=== PATIENT | male | born 1940 | race Caucasian/White ===

== ENCOUNTER 2021-06-10 16:15 | Inpatient (IN) | payer OTHER ==
[2021-06-10 18:19] LABS: #Monocytes 0.9 10x3/uL (0.0-1.1); #Neutrophils 4.4 10x3/uL (1.5-8.4); %Basophils 0.6 % (0.0-2.0); %Eosinophils 0.6 % (0.0-6.0); %Lymphocytes 15.3 % (18.0-47.0); %Monocytes 13.6 % (0.0-10.0); %Neutrophils 69.6 % (40.0-75.0); Hemoglobin 12.6 g/dL (13.5-17.5); Mean Corpuscular HGB CONC 34.5 g/dL (32.0-36.0); Mean Corpuscular Hemoglobin 30.2 pg (27.0-33.0); Mean Corpuscular Volume 87.5 fl (81.2-95.1); Mean Platelet Volume 8.8 fl (7.4-10.4); Platelet Count 234 10x3/uL (150-450); RBC Distribution Width 13.8 % (11.5-14.5); Red Blood Cell (RBC) Count 4.17 10x6/uL (4.32-5.72); White Blood Cell (WBC) Count 6.3 10x3/uL (3.5-10.5)
[2021-06-10 18:33] LABS: ALT (SGPT) 14 U/L (8-55); AST (SGOT) 19 U/L (5-34); Alkaline Phosphatase 97 U/L (40-110); Anion Gap 14 mmol/L (10-20); BUN (Urea Nitrogen) 11 mg/dL (8.4-25.7); Bilirubin, Total 0.8 mg/dL (0.2-1.2); Calc. Creatinine Clearance 0 mL/min (70-130); Carbon Dioxide 19 mmol/L (23-31); Chloride 102 mmol/L (98-107); Glucose 107 mg/dL (83-110); Potassium 3.7 mmol/L (3.5-5.1); Sodium 131 mmol/L (136-145)
[2021-06-10] MEDS ORDERED: metroNIDAZOLE 500 MG/100 ML BAG ONE (19:37)
[2021-06-10] MEDS ORDERED: PROPOFOL 20 ML ONE (19:37)
[2021-06-10] MEDS ORDERED: Fentanyl 250 MCG/5 ML VIAL ONE (19:37)
[2021-06-10] MEDS ORDERED: Dexamethasone 4 mg/ml Vial ONE (19:38)
[2021-06-10] MEDS ORDERED: Rocuronium Bromide 10 MG/ML (10ML VIAL) ONE (19:38)
[2021-06-10] MEDS ORDERED: Lidocaine 1% PF 5 ML VIAL ONE (19:38)
[2021-06-10] MEDS ORDERED: Piperacillin/Tazobactam 4.5 GM VIAL ONE (20:21)
[2021-06-10] MEDS ORDERED: SUGAMMADEX SODIUM 200 MG/2 ML VIAL ONE (20:30)
[2021-06-10] MEDS ORDERED: Succinylcholine 200 MG/10 ml SYRINGE FS ONE (20:34)
[2021-06-10] MEDS ORDERED: PHENYLEPHRINE-NS 100 MCG/ML 10 ML SYRINGE ONE (21:00)
[2021-06-10] MEDS ORDERED: Ondansetron PF 4 MG/2 ML Vial ONE (21:08)
[2021-06-10] MEDS ORDERED: Morphine 4 MG/ML VIAL SLOW IVP PRN (22:02)
[2021-06-10] MEDS ORDERED: Promethazine HCl 25 MG/ML VIAL IM PRN (22:02)
[2021-06-10] MEDS ORDERED: Ondansetron PF 4 MG/2 ML Vial IVP PRN (22:02)
[2021-06-10] MEDS ORDERED: hydrALAZINE 20 MG/ML VIAL SLOW IVP PRN (22:02)
[2021-06-10] MEDS ORDERED: Fentanyl 100 MCG/2 ML VIAL ONE (22:20)
[2021-06-11] MEDS: D5 1/2 NS w/20 mEq KCL 1,000 ML IV SCH ×2 (00:34→16:24)
[2021-06-11] MEDS: Ketorolac Tromethamine 30 MG/ML VIAL IVP SCH ×4 (00:35→19:00)
[2021-06-11 04:49] LABS: Hemoglobin 12.7 g/dL (13.5-17.5); Mean Corpuscular HGB CONC 35.4 g/dL (32.0-36.0); Mean Corpuscular Hemoglobin 30.9 pg (27.0-33.0); Mean Corpuscular Volume 87.3 fl (81.2-95.1); Mean Platelet Volume 9.1 fl (7.4-10.4); Platelet Count 203 10x3/uL (150-450); RBC Distribution Width 13.6 % (11.5-14.5); Red Blood Cell (RBC) Count 4.11 10x6/uL (4.32-5.72); White Blood Cell (WBC) Count 9.4 10x3/uL (3.5-10.5)
[2021-06-11 04:54] LABS: Anion Gap 12 mmol/L (10-20); BUN (Urea Nitrogen) 10 mg/dL (8.4-25.7); Calc. Creatinine Clearance 68 mL/min (70-130); Calcium 8.5 mg/dL (7.8-10.44); Carbon Dioxide 20 mmol/L (23-31); Chloride 102 mmol/L (98-107); Glucose 165 mg/dL (83-110); Magnesium 1.8 mg/dL (1.6-2.6); Potassium 4.1 mmol/L (3.5-5.1); Sodium 130 mmol/L (136-145)
[2021-06-11 06:25] LABS: MDiff Complete? YES
[2021-06-11 06:31] LABS: Band 23 % (5-11); Eosinophils 1 % (0-10); Lymphocytes 5 % (21-51); Metamyelocyte 1 % (0-0); Monocytes 7 % (0-10); Myelocyte 1 % (0-0); Neutrophil 62 % (42-75)
[2021-06-11 06:32] LABS: Platelet Morphology Comment Appears Adequate; RBC Morphology Normal
[2021-06-11] MEDS ORDERED: Ipratropium Bromide 2.5 ml Neb ONE (06:40)
[2021-06-11] MEDS: Levothyroxine Sodium 100 MCG TAB PO SCH (06:42)
[2021-06-11] MEDS: Mometasone Furoate 120 PUFF 220 MCG INH SCH ×2 (07:25→18:55)
[2021-06-11] MEDS: Ipratropium Bromide 2.5 ml Neb NEB SCH ×4 (07:26→18:56)
[2021-06-11] MEDS: Oxybutynin 5 MG TAB PO SCH ×2 (08:59→21:35)
[2021-06-11] MEDS ORDERED: Hydrochlorothiazide 25 MG TAB PO SCH (09:00)
[2021-06-11] MEDS ORDERED: Famotidine/PF 20 mg/2ml Vial SLOW IVP SCH (09:00)
[2021-06-11] MEDS: Aspirin 81 mg Enteric Coated Tablet PO SCH (09:01)
[2021-06-11] MEDS: Enoxaparin Sodium 40 MG/0.4 ML SYRINGE SC SCH (09:02)
[2021-06-11] MEDS ORDERED: Polyethylene Glycol 3350 17 GM Packet PO SCH (10:00)
[2021-06-11] MEDS: Atorvastatin Calcium 10 MG TAB PO SCH (21:34)
[2021-06-11] MEDS: HYDROcodone/Acetaminophen 7.5/325 mg Tablet PO PRN (21:34)
[2021-06-11 22:02] LABS: SARS-CoV-2 PCR by NAA Not Detected (NotDetected)
[2021-06-12] MEDS: Ipratropium Bromide 2.5 ml Neb NEB SCH ×4 (00:29→18:41)
[2021-06-12] MEDS: Ketorolac Tromethamine 30 MG/ML VIAL IVP SCH ×4 (01:42→18:48)
[2021-06-12 04:16] LABS: #Monocytes 0.9 10x3/uL (0.0-1.1); #Neutrophils 4.5 10x3/uL (1.5-8.4); %Basophils 0.5 % (0.0-2.0); %Eosinophils 0.3 % (0.0-6.0); %Lymphocytes 16.2 % (18.0-47.0); %Monocytes 14.2 % (0.0-10.0); %Neutrophils 68.2 % (40.0-75.0); Hemoglobin 10.5 g/dL (13.5-17.5); Mean Corpuscular HGB CONC 34.1 g/dL (32.0-36.0); Mean Corpuscular Hemoglobin 30.3 pg (27.0-33.0); Mean Corpuscular Volume 88.8 fl (81.2-95.1); Platelet Count 177 10x3/uL (150-450); RBC Distribution Width 13.9 % (11.5-14.5); Red Blood Cell (RBC) Count 3.47 10x6/uL (4.32-5.72); White Blood Cell (WBC) Count 6.5 10x3/uL (3.5-10.5)
[2021-06-12 04:27] LABS: Anion Gap 9 mmol/L (10-20); BUN (Urea Nitrogen) 15 mg/dL (8.4-25.7); Calc. Creatinine Clearance 61 mL/min (70-130); Calcium 8.3 mg/dL (7.8-10.44); Carbon Dioxide 22 mmol/L (23-31); Chloride 98 mmol/L (98-107); Glucose 102 mg/dL (83-110); Sodium 124 mmol/L (136-145)
[2021-06-12] MEDS: Levothyroxine Sodium 100 MCG TAB PO SCH (05:13)
[2021-06-12] MEDS ORDERED: D5 1/2 NS w/20 mEq KCL 1,000 ML ONE (05:13)
[2021-06-12] MEDS: D5 1/2 NS w/20 mEq KCL 1,000 ML IV SCH (05:13)
[2021-06-12] MEDS: Mometasone Furoate 120 PUFF 220 MCG INH SCH ×2 (06:40→18:39)
[2021-06-12] MEDS: Oxybutynin 5 MG TAB PO SCH ×2 (10:17→21:42)
[2021-06-12] MEDS: Aspirin 81 mg Enteric Coated Tablet PO SCH (10:17)
[2021-06-12] MEDS: Enoxaparin Sodium 40 MG/0.4 ML SYRINGE SC SCH (10:18)
[2021-06-12] MEDS: Polyethylene Glycol 3350 17 GM Packet PO SCH (10:18)
[2021-06-12] MEDS: Atorvastatin Calcium 10 MG TAB PO SCH (21:42)
[2021-06-12] MEDS: HYDROcodone/Acetaminophen 7.5/325 mg Tablet PO PRN (21:49)
[2021-06-13] MEDS: Ketorolac Tromethamine 30 MG/ML VIAL IVP SCH ×4 (00:16→17:21)
[2021-06-13 01:12] VITALS: BMI 18.7
[2021-06-13] MEDS: Ipratropium Bromide 2.5 ml Neb NEB SCH ×4 (01:19→19:07)
[2021-06-13 04:55] LABS: #Eosinphils 0.1 10x3/uL (0.0-0.5); #Monocytes 0.8 10x3/uL (0.0-1.1); #Neutrophils 3.2 10x3/uL (1.5-8.4); %Basophils 0.6 % (0.0-2.0); %Eosinophils 1.3 % (0.0-6.0); %Lymphocytes 22.9 % (18.0-47.0); %Monocytes 14.5 % (0.0-10.0); %Neutrophils 60.3 % (40.0-75.0); Hemoglobin 11.8 g/dL (13.5-17.5); Mean Corpuscular HGB CONC 34.5 g/dL (32.0-36.0); Mean Corpuscular Hemoglobin 30.3 pg (27.0-33.0); Mean Corpuscular Volume 87.9 fl (81.2-95.1); Mean Platelet Volume 9.3 fl (7.4-10.4); Platelet Count 219 10x3/uL (150-450); RBC Distribution Width 13.8 % (11.5-14.5); Red Blood Cell (RBC) Count 3.89 10x6/uL (4.32-5.72); White Blood Cell (WBC) Count 5.3 10x3/uL (3.5-10.5)
[2021-06-13 04:58] LABS: Anion Gap 12 mmol/L (10-20); BUN (Urea Nitrogen) 11 mg/dL (8.4-25.7); Calc. Creatinine Clearance 65 mL/min (70-130); Calcium 8.9 mg/dL (7.8-10.44); Carbon Dioxide 22 mmol/L (23-31); Chloride 102 mmol/L (98-107); Glucose 87 mg/dL (83-110); Potassium 4.8 mmol/L (3.5-5.1); Sodium 131 mmol/L (136-145)
[2021-06-13] MEDS: Levothyroxine Sodium 100 MCG TAB PO SCH (05:26)
[2021-06-13] MEDS: Mometasone Furoate 120 PUFF 220 MCG INH SCH ×2 (06:54→19:06)
[2021-06-13] MEDS: Polyethylene Glycol 3350 17 GM Packet PO SCH (09:32)
[2021-06-13] MEDS: Enoxaparin Sodium 40 MG/0.4 ML SYRINGE SC SCH (09:32)
[2021-06-13] MEDS: Aspirin 81 mg Enteric Coated Tablet PO SCH (09:32)
[2021-06-13] MEDS: Oxybutynin 5 MG TAB PO SCH ×2 (09:32→20:24)
[2021-06-13] MEDS: Atorvastatin Calcium 10 MG TAB PO SCH (20:24)
[2021-06-14] MEDS: Ipratropium Bromide 2.5 ml Neb NEB SCH ×4 (00:33→20:30)
[2021-06-14] MEDS: Ketorolac Tromethamine 30 MG/ML VIAL IVP SCH (01:38)
[2021-06-14 04:49] LABS: #Eosinphils 0.1 10x3/uL (0.0-0.5); #Monocytes 0.7 10x3/uL (0.0-1.1); #Neutrophils 3.7 10x3/uL (1.5-8.4); %Basophils 0.7 % (0.0-2.0); %Eosinophils 2.6 % (0.0-6.0); %Lymphocytes 15.9 % (18.0-47.0); %Monocytes 12.7 % (0.0-10.0); %Neutrophils 67.4 % (40.0-75.0); Hemoglobin 11.6 g/dL (13.5-17.5); Mean Corpuscular HGB CONC 35.3 g/dL (32.0-36.0); Mean Corpuscular Hemoglobin 31.1 pg (27.0-33.0); Mean Corpuscular Volume 88.2 fl (81.2-95.1); Platelet Count 229 10x3/uL (150-450); RBC Distribution Width 13.6 % (11.5-14.5); Red Blood Cell (RBC) Count 3.73 10x6/uL (4.32-5.72); White Blood Cell (WBC) Count 5.4 10x3/uL (3.5-10.5)
[2021-06-14 05:02] LABS: Anion Gap 13 mmol/L (10-20); BUN (Urea Nitrogen) 9 mg/dL (8.4-25.7); Calc. Creatinine Clearance 67 mL/min (70-130); Calcium 8.9 mg/dL (7.8-10.44); Carbon Dioxide 19 mmol/L (23-31); Chloride 102 mmol/L (98-107); Glucose 109 mg/dL (83-110); Magnesium 1.9 mg/dL (1.6-2.6); Potassium 3.8 mmol/L (3.5-5.1); Sodium 130 mmol/L (136-145)
[2021-06-14] MEDS: Levothyroxine Sodium 100 MCG TAB PO SCH (07:24)
[2021-06-14] MEDS: Mometasone Furoate 120 PUFF 220 MCG INH SCH ×2 (07:50→20:30)
[2021-06-14] MEDS: Enoxaparin Sodium 40 MG/0.4 ML SYRINGE SC SCH (08:33)
[2021-06-14] MEDS: HYDROcodone/Acetaminophen 7.5/325 mg Tablet PO PRN ×2 (08:33→20:40)
[2021-06-14] MEDS: Polyethylene Glycol 3350 17 GM Packet PO SCH (08:33)
[2021-06-14] MEDS: Aspirin 81 mg Enteric Coated Tablet PO SCH (08:33)
[2021-06-14] MEDS: Oxybutynin 5 MG TAB PO SCH ×2 (08:33→20:39)
[2021-06-14] MEDS: Atorvastatin Calcium 10 MG TAB PO SCH (20:40)
[2021-06-15] MEDS: Ipratropium Bromide 2.5 ml Neb NEB SCH ×4 (01:30→19:35)
[2021-06-15] MEDS: HYDROcodone/Acetaminophen 7.5/325 mg Tablet PO PRN (04:52)
[2021-06-15 05:32] LABS: #Eosinphils 0.2 10x3/uL (0.0-0.5); #Monocytes 0.7 10x3/uL (0.0-1.1); #Neutrophils 2.8 10x3/uL (1.5-8.4); %Basophils 0.8 % (0.0-2.0); %Eosinophils 3.9 % (0.0-6.0); %Lymphocytes 23.2 % (18.0-47.0); %Monocytes 15.2 % (0.0-10.0); %Neutrophils 56.5 % (40.0-75.0); Mean Corpuscular HGB CONC 34.8 g/dL (32.0-36.0); Mean Corpuscular Hemoglobin 30.8 pg (27.0-33.0); Mean Corpuscular Volume 88.5 fl (81.2-95.1); Mean Platelet Volume 8.8 fl (7.4-10.4); Platelet Count 261 10x3/uL (150-450); RBC Distribution Width 13.9 % (11.5-14.5); White Blood Cell (WBC) Count 4.9 10x3/uL (3.5-10.5)
[2021-06-15 05:39] LABS: ALT (SGPT) 11 U/L (8-55); AST (SGOT) 14 U/L (5-34); Albumin 3.6 g/dL (3.4-4.8); Alkaline Phosphatase 87 U/L (40-110); Anion Gap 15 mmol/L (10-20); BUN (Urea Nitrogen) 9 mg/dL (8.4-25.7); Bilirubin, Total 0.8 mg/dL (0.2-1.2); Calc. Creatinine Clearance 62 mL/min (70-130); Calcium 9.1 mg/dL (7.8-10.44); Carbon Dioxide 20 mmol/L (23-31); Chloride 100 mmol/L (98-107); Globulin 2.9 g/dL (2.4-3.5); Glucose 101 mg/dL (83-110); Potassium 4.2 mmol/L (3.5-5.1); Protein, Total 6.5 g/dL (5.8-8.1); Sodium 131 mmol/L (136-145)
[2021-06-15] MEDS: Levothyroxine Sodium 100 MCG TAB PO SCH (06:39)
[2021-06-15] MEDS: Mometasone Furoate 120 PUFF 220 MCG INH SCH ×2 (07:35→19:35)
[2021-06-15] MEDS: Polyethylene Glycol 3350 17 GM Packet PO SCH (08:51)
[2021-06-15] MEDS: Enoxaparin Sodium 40 MG/0.4 ML SYRINGE SC SCH (08:51)
[2021-06-15] MEDS: Lisinopril 5 MG TAB PO SCH (08:52)
[2021-06-15] MEDS: Oxybutynin 5 MG TAB PO SCH ×2 (08:52→21:29)
[2021-06-15] MEDS: Aspirin 81 mg Enteric Coated Tablet PO SCH (08:52)
[2021-06-15] MEDS: Atorvastatin Calcium 10 MG TAB PO SCH (21:29)
[2021-06-16] MEDS: Ipratropium Bromide 2.5 ml Neb NEB SCH ×3 (01:50→13:56)
[2021-06-16] MEDS: Levothyroxine Sodium 100 MCG TAB PO SCH (05:56)
[2021-06-16] MEDS: Mometasone Furoate 120 PUFF 220 MCG INH SCH (07:04)
[2021-06-16] MEDS: Enoxaparin Sodium 40 MG/0.4 ML SYRINGE SC SCH (08:08)
[2021-06-16] MEDS: Aspirin 81 mg Enteric Coated Tablet PO SCH (08:08)
[2021-06-16] MEDS: Lisinopril 5 MG TAB PO SCH (08:08)
[2021-06-16] MEDS: Oxybutynin 5 MG TAB PO SCH (08:08)
[2021-06-16] MEDS: Polyethylene Glycol 3350 17 GM Packet PO SCH (08:08)
[2021-06-16 17:46] VITALS: BP 138/72; TEMP 98.2
== END 2021-06-16 18:43 | DRG 330 ==
LOC: CSHERS 16:15 → CSHTELE 20:29 → EEVIPCON 06-11 00:03 → CSHTELE 06-11 00:03 → UNDOADMIN 06-11 00:03
PROVIDERS: ADMIT Family Medicine; ATTEND Family Medicine
PROC: 0DBN0ZZ Excision of Sigmoid Colon, Open Approach (ICD-10-PCS; principal; 2021-06-10)
DX: K56.2 Volvulus (principal); D62 Acute posthemorrhagic anemia; K91.89 Other postprocedural complications and disorders of digestive system; E87.2 Acidosis; E22.2 Syndrome of inappropriate secretion of antidiuretic hormone; K56.7 Ileus, unspecified; Z20.822 Contact with and (suspected) exposure to COVID-19; I10 Essential (primary) hypertension; E78.5 Hyperlipidemia, unspecified; J44.9 Chronic obstructive pulmonary disease, unspecified; E03.9 Hypothyroidism, unspecified; K44.9 Diaphragmatic hernia without obstruction or gangrene; K21.9 Gastro-esophageal reflux disease without esophagitis; K63.89 Other specified diseases of intestine; K22.719 Barrett's esophagus with dysplasia, unspecified; N40.0 Benign prostatic hyperplasia without lower urinary tract symptoms; Z88.8 Allergy status to other drugs, medicaments and biological substances; Z79.82 Long term (current) use of aspirin; Z79.899 Other long term (current) drug therapy; Z98.890 Other specified postprocedural states
CPT/HCPCS: 36415; 36416; 74019; 74176; 80048; 80053; 83735; 84300; 85025; 88307; 93005; 94664; 94760; 96374; 96375; C1889; J1100; J1650; J1885; J2270; J2405; J2543; J2704; J3010; J3480; J7620; S0028; U0003; U0005

== ENCOUNTER 2023-05-13 10:28 | Emergency (ER) | payer OTHER ==
[2023-05-13 11:06] LABS: #Basophils 0.1 10x3/uL (0.0-0.2); #Eosinphils 0.1 10x3/uL (0.0-0.5); #Monocytes 0.5 10x3/uL (0.0-1.1); #Neutrophils 9.4 10x3/uL (1.5-8.4); %Basophils 0.6 % (0.0-2.0); %Eosinophils 1.1 % (0.0-6.0); %Lymphocytes 4.4 % (18.0-47.0); %Monocytes 4.6 % (0.0-10.0); %Neutrophils 88.7 % (40.0-75.0); Hemoglobin 13.3 g/dL (13.5-17.5); Mean Corpuscular HGB CONC 34.1 g/dL (32.0-36.0); Mean Corpuscular Hemoglobin 30.4 pg (27.0-33.0); Mean Platelet Volume 9.3 fl (7.4-10.4); Platelet Count 250 10x3/uL (150-450); RBC Distribution Width 14.1 % (11.5-14.5); Red Blood Cell (RBC) Count 4.38 10x6/uL (4.32-5.72); White Blood Cell (WBC) Count 10.6 10x3/uL (3.5-10.5)
[2023-05-13 11:27] LABS: ALT (SGPT) 13 U/L (8-55); AST (SGOT) 19 U/L (5-34); Albumin 4.2 g/dL (3.4-4.8); Alkaline Phosphatase 126 U/L (40-110); Anion Gap 14 mmol/L (10-20); BUN (Urea Nitrogen) 14 mg/dL (8.4-25.7); Calc. Creatinine Clearance 0 mL/min (70-130); Calcium 9.3 mg/dL (7.8-10.44); Carbon Dioxide 20 mmol/L (23-31); Chloride 106 mmol/L (98-107); Estimated GFR 71; Globulin 3.1 g/dL (2.4-3.5); Glucose 121 mg/dL (83-110); Potassium 4.2 mmol/L (3.5-5.1); Protein, Total 7.3 g/dL (5.8-8.1); Sodium 136 mmol/L (136-145)
[2023-05-13] MEDS ORDERED: Cefepime 2 GM VIAL ONE (11:37)
[2023-05-13] MEDS ORDERED: Triple Antibiotic Oint 1 GM Packet ONE (11:39)
[2023-05-13 12:24] LABS: SARS-CoV-2 NAA Rapid Test Not Detected (NotDetected)
[2023-05-13 12:36] LABS: Bilirubin Neg (Negative); Blood, Urine 10 (Negative); Clarity Clear (Clear); Glucose, Urine (Dipstick) Normal (Negative); Ketone, Urine Negative (Negative); Leukocyte Negative (Negative); Nitrite Negative (Negative); Protein, Urine (Dipstick) 15 mg/dl (Neg-Trace); Urobilinogen Normal mg/dL (Less than 2)
[2023-05-13 12:49] LABS: CAUTI Indications for Culture Fever or rigors; RBC/HPF 0-3 HPF (0-3); Squamous Epithelial 0-3 HPF (0-3); WBC/HPF 0-3 HPF (0-3)
[2023-05-13 12:50] LABS: Bacteria/HPF Rare-Few HPF (None Seen)
[2023-05-13 12:51] LABS: Urine Culture Reflex No No
[2023-05-13 13:50] LABS: Lactic Acid 1.4 mmol/L (0.5-2.2)
== END 2023-05-13 14:30 ==
LOC: CSHERS 10:28
DX: R55 Syncope and collapse (principal); J44.9 Chronic obstructive pulmonary disease, unspecified; E03.9 Hypothyroidism, unspecified; K21.9 Gastro-esophageal reflux disease without esophagitis; Z79.890 Hormone replacement therapy; Z79.51 Long term (current) use of inhaled steroids; Z79.82 Long term (current) use of aspirin; Z79.899 Other long term (current) drug therapy
CPT/HCPCS: 36415; 70450; 71045; 72125; 72170; 80053; 81001; 83605; 83880; 85025; 87040; 87086; 93005; 96365; J0692